=== PATIENT | female | born 1975 | race Caucasian/White ===

== ENCOUNTER 2017-03-17 10:08 | Observation (INO) | payer MEDICAID, MEDICARE, OTHER ==
[~2017-03-17] VITALS: Ht 167.6 cm; Wt 68.0 kg
[2017-03-17] MEDS ORDERED: SODIUM CHLORIDE 0.9% 1,000 ML IV ONE (10:33)
[2017-03-17 10:47] LABS: DAU SCREEN DISCLAIMER
[2017-03-17 10:49] LABS: HCG UR OBC PASS
[2017-03-17 10:57] LABS: HEMATOCRIT 37.9 % (34.6-47.8); WHITE BLOOD COUNT 7.5 x10^3/uL (3.4-10)
[2017-03-17 11:10] LABS: ASPARTATE AMINO TRANSFERASE 12 U/L (15-37); BLOOD UREA NITROGEN 14 mg/dL (7-18)
[2017-03-17 11:16] LABS: ACETAMINOPHEN < 2 mcg/mL (10-30)
[2017-03-17] MEDS ORDERED: ZOLP-413 PO (11:38)
[2017-03-17] MEDS ORDERED: LURA20TA PO (11:38)
[2017-03-17] MEDS ORDERED: LEVO50TA5 PO (11:38)
[2017-03-17] MEDS ORDERED: LAMO5TB.2 PO (11:38)
[2017-03-17] MEDS ORDERED: CLON1TAB PO (11:38)
[2017-03-17] MEDS ORDERED: KETOROLAC 30 MG/1 ML IVPush ONE (12:00)
[2017-03-17] MEDS ORDERED: KETOROLAC 30 MG/1 ML ONE (12:09)
[2017-03-17] MEDS ORDERED: BACITRACIN ZINC OINT 500U/GM, 0.9 GM ONE (12:57)
[2017-03-17] MEDS ORDERED: LAMOTRIGINE 5 MG PO SCH (13:00)
[2017-03-17] MEDS ORDERED: ACETAMINOPHEN 325 MG TABLET PO PRN (13:00)
[2017-03-17] MEDS ORDERED: ONDANSETRON ODT 4 MG PO PRN (13:00)
[2017-03-17] MEDS ORDERED: LORazepam 2 MG/ML, 1ML IM PRN (13:00)
[2017-03-17] MEDS ORDERED: HALOPERIDOL 5 MG/ML IM PRN (13:00)
[2017-03-17] MEDS ORDERED: HYDROcodone/APAP 5/325 TABLET ONE (14:48)
[2017-03-17] MEDS: HYDROcodone/APAP 5/325 TABLET PO PRN (14:49)
[2017-03-17] MEDS ORDERED: HALOPERIDOL 5 MG TABLET PO PRN (18:00)
[2017-03-17] MEDS ORDERED: LORazepam 1MG TABLET ONE (22:08)
[2017-03-17] MEDS: LORazepam 1MG TABLET PO PRN (22:13)
[2017-03-17] MEDS ORDERED: VENLAFAXINE XR 37.5MG CAP.ER.24H PO SCH (22:30)
[2017-03-17] MEDS: PRAZOSIN 5 MG CAPSULE PO SCH (22:59)
[2017-03-17] MEDS: LEVOTHYROXINE 50 MCG TABLET PO SCH (22:59)
[2017-03-17] MEDS: LAMOTRIGINE 25 MG TABLET PO SCH (23:00)
[2017-03-17] MEDS: LURASIDONE 20 MG TABLET PO SCH (23:00)
[2017-03-18 06:56] LABS: ASPARTATE AMINO TRANSFERASE 10 U/L (15-37); BLOOD UREA NITROGEN 18 mg/dL (7-18)
[2017-03-18] MEDS ORDERED: LORazepam 1MG TABLET ONE (08:35)
[2017-03-18] MEDS: LORazepam 1MG TABLET PO PRN ×2 (08:37→16:28)
[2017-03-18] MEDS ORDERED: LAMOTRIGINE 25 MG TABLET PO SCH (09:00)
[2017-03-18] MEDS: LEVOTHYROXINE 50 MCG TABLET PO SCH (09:19)
[2017-03-18] MEDS: LAMOTRIGINE 25 MG TABLET PO SCH ×2 (09:20→20:58)
[2017-03-18] MEDS ORDERED: NICOTINE 21 MG/24 HR PATCH.TD24 ONE (09:24)
[2017-03-18] MEDS: NICOTINE 21 MG/24 HR PATCH.TD24 TD SCH ×2 (09:25→13:14)
[2017-03-18] MEDS ORDERED: HYDROcodone/APAP 5/325 TABLET ONE (12:58)
[2017-03-18] MEDS: HYDROcodone/APAP 5/325 TABLET PO PRN (13:13)
[2017-03-18 15:46] VITALS: BP 118/77
[2017-03-18 19:46] VITALS: BP 92/53
[2017-03-18] MEDS ORDERED: VENLAFAXINE 75 MG CAP ER PO SCH (21:00)
[2017-03-18] MEDS: PRAZOSIN 5 MG CAPSULE PO SCH (21:00)
[2017-03-18] MEDS: LURASIDONE 20 MG TABLET PO SCH (21:01)
[2017-03-19] MEDS: LEVOTHYROXINE 50 MCG TABLET PO SCH (07:00)
[2017-03-19 07:35] VITALS: BP_SYST 112; BP_SYST 90; BP_DIAS 48; BP_DIAS 56
[2017-03-19] MEDS ORDERED: LEVOTHYROXINE 25 MCG TABLET ONE (08:12)
[2017-03-19] MEDS: LAMOTRIGINE 25 MG TABLET PO SCH (09:00)
[2017-03-19] MEDS: HYDROcodone/APAP 5/325 TABLET PO PRN (09:27)
[2017-03-19] MEDS: NICOTINE 21 MG/24 HR PATCH.TD24 TD SCH (13:31)
== END 2017-03-19 15:15 ==
LOC: ED 12:12 → EDIP 12:13 → SUATTDRO 12:21 → ED 12:25 → 3E 03-18 15:41
PROVIDERS: ADMIT Internal Medicine; ATTEND Internal Medicine
DX: T42.4X2A Poisoning by benzodiazepines, intentional self-harm, initial encounter (principal); E03.9 Hypothyroidism, unspecified; F31.9 Bipolar disorder, unspecified; Z72.0 Tobacco use; M41.9 Scoliosis, unspecified; G89.29 Other chronic pain; Y92.89 Other specified places as the place of occurrence of the external cause; S71.112A Laceration without foreign body, left thigh, initial encounter; X83.8XXA Intentional self-harm by other specified means, initial encounter; Y93.89 Activity, other specified; Y99.8 Other external cause status
CPT/HCPCS: 36415; 80053; 80307; 80329; 81003; 81025; 84443; 85025; 96374; 99285; G0378; J1885; G0479; G0480

== ENCOUNTER 2018-03-27 15:52 | Observation (INO) | payer MEDICARE, MEDICAID ==
[~2018-03-27] VITALS: Ht 167.6 cm; Wt 76.2 kg
[~2018-03-27 15:52] MED LIST: CLON1TAB PO; LAMO5TB.2 PO; LEVO50TA5 PO; LURA20TA PO; ZOLP-413 PO
[2018-03-27 16:40] LABS: BASOPHILS # (AUTO) 0.02 x10^3/uL (0-0.1); BASOPHILS % (AUTO) 0 % (0-1); EOSINOPHILS # (AUTO) 0.13 x10^3/uL (0-0.4); EOSINOPHILS % (AUTO) 2 % (1-7); LYMPHOCYTES # (AUTO) 1.59 x10^3/uL (1-3.4); LYMPHOCYTES % (AUTO) 21 % (22-44); MD NO; MEAN CORPUSCULAR HEMOGLOBIN 31.2 pg (27.0-34.8); MEAN CORPUSCULAR HGB CONC 33.7 g/dL (32.4-35.8); MEAN CORPUSCULAR VOLUME 92.6 fL (80-100); MEAN PLATELET VOLUME 7.3 fL (7.4-10.4); MONOCYTES # (AUTO) 0.28 x10^3/uL (0.2-0.8); MONOCYTES % (AUTO) 4 % (2-9); NEUTROPHILS # (AUTO) 5.45 x10^3/uL (1.8-6.8); NEUTROPHILS % (AUTO) 73 % (42-75); PLATELET COUNT 356 x10^3/uL (130-400); RED BLOOD COUNT 4.01 x10^6/uL (3.82-5.3); RED CELL DISTRIBUTION WIDTH 17.1 % (9.6-15.2)
[2018-03-27 16:51] LABS: ALANINE AMINOTRANSFERASE 18 U/L (12-78); ALBUMIN 3.9 g/dL (3.4-5.0); ANION GAP 9 mmol/L (5-15); CALCIUM 8.7 mg/dL (8.5-10.1); CHLORIDE 110 mmol/L (98-107); CREATININE 0.77 mg/dL (0.55-1.02); SALICYLATE LEVEL 3.7 mg/dL (2.8-20.0)
[2018-03-27 16:56] LABS: ALKALINE PHOSPHATASE 56 U/L (45-117); BILIRUBIN,TOTAL 0.2 mg/dL (0.2-1.0); TOTAL PROTEIN 7.7 g/dL (6.4-8.2)
[2018-03-27 16:59] LABS: ACETAMINOPHEN < 2 mcg/mL (10-30)
[2018-03-27 18:02] LABS: MICROSCOPIC AUTO
[2018-03-27 18:05] LABS: CULTURE INDICATED? YES
[2018-03-27 18:22] LABS: AMPHETAMINE SCREEN, URINE Negative (Negative); BENZODIAZEPINE SCREEN, URINE Positive (Negative); CANNABINOID SCREEN, URINE Negative (Negative); COCAINE SCREEN, URINE Negative (Negative); METHADONE SCREEN, URINE Negative (Negative); OPIATE SCREEN, URINE Negative (Negative)
[2018-03-27 18:23] LABS: BARBITURATE SCREEN, URINE Negative (Negative)
[2018-03-27] MEDS ORDERED: ONDANSETRON ODT 4 MG PO PRN (20:00)
[2018-03-27] MEDS ORDERED: NICOTINE 14MG/24 HR PATCH.TD24 TD SCH (20:00)
[2018-03-27] MEDS ORDERED: POLYETHYLENE GLYCOL 17 GM PACKET PO PRN (20:00)
[2018-03-27] MEDS ORDERED: IBUPROFEN 600 MG TABLET PO PRN (20:00)
[2018-03-27] MEDS ORDERED: ACETAMINOPHEN 325 MG TABLET PO PRN (20:00)
[2018-03-27 20:19] VITALS: BP 104/66
[2018-03-28] MEDS ORDERED: LEVOTHYROXINE 50 MCG TABLET PO SCH (06:00)
== END 2018-03-27 23:00 ==
LOC: ED 19:34 → SUATTDRO 19:39 → EDIP 19:50 → 2N 20:16
PROVIDERS: ADMIT Hospitalist; ATTEND Hospitalist
DX: T42.4X2A Poisoning by benzodiazepines, intentional self-harm, initial encounter (principal); F31.9 Bipolar disorder, unspecified; E03.9 Hypothyroidism, unspecified; F41.1 Generalized anxiety disorder; F17.210 Nicotine dependence, cigarettes, uncomplicated; Z91.5 Personal history of self-harm
CPT/HCPCS: 36415; 80053; 80307; 80329; 81001; 84703; 85025; 87086; 99285; G0378; G0480

== ENCOUNTER 2019-01-30 19:21 | Emergency (ER) | payer MEDICARE, MEDICAID ==
[~2019-01-30] VITALS: Ht 165.1 cm; Wt 77.0 kg
--- NOTE | 2019-01-30 19:25 | NUR ---
PT STATES SHE HAS BEEN TAKING HER MEDICATIONS PRESCRIBED BUT IS UNSURE WHAT THEY ARE. STATES SHE IS TAKING CELEXA OF UNKNOWN DOSE. DENIES DRUGS OR ALCOHOL TODYA.
--- NOTE | 2019-01-30 19:40 | NUR ---
BELONGINGS REMOVED FROM PT ROOM AND SECURED IN THE ED.
--- NOTE | 2019-01-30 19:41 | NUR ---
PT FAMILY FRIEND CALLS AND STATES THAT PT HAS BEEN STAYING WITH THEM RECENTLY AND IS "NOTORIOUS FOR TAKING TOO MANY MEDICAIONS." STATES THAT HE WANTED HER TO GO TO [place] OR "GET STRAIGHTENED OUT THERE." [place] [phone]
--- NOTE | 2019-01-30 20:00 | NUR ---
PT SLEEPING QUIETLY, AWAKENED AT THIS TIME, REMAINS SOMNOLENT BUT APPROPRIATE. PT CURRENTLY DENIES SI/HI AT THIS TIME, STATES THAT SHE DOES SOMETIMES FEEL SUICIDAL AND BUT TWICE DENIES FEELING SUICIDAL AT THIS TIME, DENIES THAT SHE TOOK MORE OF HER MEDICATIONS THAT RX'D HOWEVER IS ONLY ABLE TO RECALL CLONAZEPAM AND DOES NOT RECALL THE DOSAGE. PT IS NSR MONITOR WITHOUT ECTOPY, IS TO CT AT THIS TIME CURRENTLY STABLE.
--- NOTE | 2019-01-30 20:03 | NUR ---
PT STATES THAT SHE IS SLEEPY BECAUSE SHE FELL AND HIT HER HEAD, UNABLE TO DESCRIBE EVENT OR TIME. PT NOTES HISTORY OF SA IN THE PAST BY CUTTING HER R WRIST HORIZONTALLY WELL HEALED
[2019-01-30 20:27] LABS: BASOPHILS % (AUTO) 0 % (0-1); EOSINOPHILS # (AUTO) 0.07 x10^3/uL (0-0.4); EOSINOPHILS % (AUTO) 1 % (1-7); LYMPHOCYTES % (AUTO) 13 % (22-44); MD NO; MEAN CORPUSCULAR HEMOGLOBIN 35.5 pg (27.0-34.8); MEAN CORPUSCULAR HGB CONC 33.8 g/dL (32.4-35.8); MEAN PLATELET VOLUME 7.3 fL (7.4-10.4); MONOCYTES # (AUTO) 0.65 x10^3/uL (0.2-0.8); MONOCYTES % (AUTO) 7 % (2-9); NEUTROPHILS # (AUTO) 7.22 x10^3/uL (1.8-6.8); NEUTROPHILS % (AUTO) 79 % (42-75); PLATELET COUNT 319 x10^3/uL (130-400); RED BLOOD COUNT 3.65 x10^6/uL (3.82-5.3); RED CELL DISTRIBUTION WIDTH 13.6 % (9.6-15.2)
[2019-01-30 20:39] LABS: ALANINE AMINOTRANSFERASE 20 U/L (12-78); ALBUMIN 3.6 g/dL (3.4-5.0); ANION GAP 9 mmol/L (5-15); CALCIUM 8.3 mg/dL (8.5-10.1); CHLORIDE 112 mmol/L (98-107); CREATININE 0.99 mg/dL (0.55-1.02); SALICYLATE LEVEL 3.2 mg/dL (2.8-20.0)
[2019-01-30 20:41] LABS: ALKALINE PHOSPHATASE 42 U/L (45-117); BILIRUBIN,TOTAL 0.3 mg/dL (0.2-1.0); TOTAL PROTEIN 6.4 g/dL (6.4-8.2)
--- NOTE | 2019-01-30 20:54 | NUR ---
THROUGHPUT RN: TELEPSYCH CONSULTED.
--- NOTE | 2019-01-30 21:55 | NUR ---
PT RESTING IN BED W/O DISTRESS. VSS.
--- NOTE | 2019-01-30 22:25 | NUR ---
Note tiffanie in [facility] - 01/30/19 at 2225 by CHIDI PT VOMITED APPROX 150CC OF BROWN VOMIT, SUCTIONIED MOUTH TO CLEAR. HOSPITALIST AT BEDSIDE AND AWARE OF VOMITING
--- NOTE | 2019-01-30 22:50 | NUR ---
ASSISTED PT TO THE RESTROOM FOR SAMPLE COLLECTION. OFFERED FOOD AND DRINK BUT PT REFUSES AT THIS TIME.
--- NOTE | 2019-01-30 22:55 | NUR ---
GAVE REPORT TO TELEPSYCH
[2019-01-30 23:18] LABS: AMPHETAMINE SCREEN, URINE Negative (Negative); BARBITURATE SCREEN, URINE Negative (Negative); BENZODIAZEPINE SCREEN, URINE Positive (Negative); CANNABINOID SCREEN, URINE Negative (Negative); COCAINE SCREEN, URINE Negative (Negative); METHADONE SCREEN, URINE Negative (Negative); OPIATE SCREEN, URINE Negative (Negative)
[2019-01-30 23:50] LABS: FREE T4 (FREE THYROXINE) 0.77 ng/dL (0.76-1.46)
--- NOTE | 2019-01-30 23:53 | NUR ---
PT GIVEN OJ AND CRACKERS AND ENCOURAGED TO EAT/DRINK.
--- NOTE | 2019-01-31 00:20 | NUR ---
GAVE REPORT TO KALLI MANCINI AND AWAITING TRANSPORT.
== END 2019-01-31 00:45 ==
LOC: ED 20:35
DX: R41.82 Altered mental status, unspecified (principal); R45.851 Suicidal ideations; R25.9 Unspecified abnormal involuntary movements; Z72.9 Problem related to lifestyle, unspecified; F41.1 Generalized anxiety disorder; E03.9 Hypothyroidism, unspecified
CPT/HCPCS: 36415; 70450; 80053; 80307; 84439; 84443; 85025; 99284

== ENCOUNTER 2019-01-31 00:34 | Inpatient (IN) | payer MEDICARE, MEDICAID ==
[~2019-01-31] VITALS: Ht 167.6 cm; Wt 77.2 kg
[2019-02-05 07:32] VITALS: BP 105/71
== END 2019-02-05 10:20 | disposition home or self-care (01) | DRG 885 ==
LOC: 3E 01:05
PROVIDERS: ADMIT Counselor Mental Health; ATTEND Counselor Mental Health
DX: F31.30 Bipolar disorder, current episode depressed, mild or moderate severity, unspecified (principal); R45.851 Suicidal ideations; E03.9 Hypothyroidism, unspecified; F41.9 Anxiety disorder, unspecified; F17.210 Nicotine dependence, cigarettes, uncomplicated; G47.00 Insomnia, unspecified; Z81.8 Family history of other mental and behavioral disorders; Z79.899 Other long term (current) drug therapy; Z83.3 Family history of diabetes mellitus; Z82.5 Family history of asthma and other chronic lower respiratory diseases; Z71.6 Tobacco abuse counseling
CPT/HCPCS: 36415; 70450; 71045; 80053; 80061; 80307; 81001; 82140; 82607; 84439; 84443; 85025; 85651; 86592; 87086; 93005; 99284

== ENCOUNTER → 2020-02-08 | Outpatient (CLI) | payer MEDICARE, MEDICAID ==
[~2020-02-08] MED LIST changes: +LAMO150T3 PO; +TEMA30CA PO; +prazosin PO; +propranolol PO; +vraylar PO
[2020-02-08 13:40] LABS: BASOPHILS # (AUTO) 0.03 x10^3/uL (0-0.1); BASOPHILS % (AUTO) 0 % (0-1); EOSINOPHILS # (AUTO) 0.22 x10^3/uL (0-0.4); EOSINOPHILS % (AUTO) 2 % (1-7); LYMPHOCYTES # (AUTO) 1.34 x10^3/uL (1-3.4); LYMPHOCYTES % (AUTO) 15 % (22-44); MD NO; MEAN CORPUSCULAR HEMOGLOBIN 34.2 pg (27.0-34.8); MEAN CORPUSCULAR HGB CONC 33.8 g/dL (32.4-35.8); MEAN CORPUSCULAR VOLUME 101.4 fL (80-100); MEAN PLATELET VOLUME 7.2 fL (7.4-10.4); MONOCYTES # (AUTO) 0.41 x10^3/uL (0.2-0.8); MONOCYTES % (AUTO) 5 % (2-9); NEUTROPHILS # (AUTO) 6.95 x10^3/uL (1.8-6.8); NEUTROPHILS % (AUTO) 78 % (42-75); PLATELET COUNT 394 x10^3/uL (130-400); RED BLOOD COUNT 3.91 x10^6/uL (3.82-5.3); RED CELL DISTRIBUTION WIDTH 14.2 % (9.6-15.2)
== END | disposition home or self-care (01) ==
LOC: LAB 13:19
PROVIDERS: ATTEND Obstetrics & Gynecology
DX: R19.00 Intra-abdominal and pelvic swelling, mass and lump, unspecified site (principal); N83.201 Unspecified ovarian cyst, right side; N83.202 Unspecified ovarian cyst, left side
CPT/HCPCS: 36415; 85025

== ENCOUNTER 2020-02-10 14:05 | Outpatient (CLI) | payer MEDICARE, MEDICAID ==
[~2020-02-10 14:05] MED LIST changes: -LAMO150T3 PO; -TEMA30CA PO; -prazosin PO; -propranolol PO; -vraylar PO
[2020-02-10] MEDS ORDERED: prazosin PO (14:47)
[2020-02-10] MEDS ORDERED: TEMA30CA PO (14:47)
[2020-02-10] MEDS ORDERED: LAMO150T3 PO (14:47)
[2020-02-10] MEDS ORDERED: vraylar PO (14:47)
[2020-02-10] MEDS ORDERED: propranolol PO (14:47)
[2020-02-10 15:08] LABS: BASOPHILS # (AUTO) 0.02 x10^3/uL (0-0.1); BASOPHILS % (AUTO) 0 % (0-1); EOSINOPHILS # (AUTO) 0.17 x10^3/uL (0-0.4); EOSINOPHILS % (AUTO) 3 % (1-7); LYMPHOCYTES # (AUTO) 1.17 x10^3/uL (1-3.4); LYMPHOCYTES % (AUTO) 19 % (22-44); MD NO; MEAN CORPUSCULAR HEMOGLOBIN 34.7 pg (27.0-34.8); MEAN CORPUSCULAR HGB CONC 33.9 g/dL (32.4-35.8); MEAN CORPUSCULAR VOLUME 102.4 fL (80-100); MEAN PLATELET VOLUME 7.1 fL (7.4-10.4); MONOCYTES % (AUTO) 7 % (2-9); NEUTROPHILS # (AUTO) 4.35 x10^3/uL (1.8-6.8); NEUTROPHILS % (AUTO) 71 % (42-75); PLATELET COUNT 383 x10^3/uL (130-400); RED BLOOD COUNT 3.59 x10^6/uL (3.82-5.3); RED CELL DISTRIBUTION WIDTH 14.1 % (9.6-15.2)
[2020-02-10 15:13] LABS: ALANINE AMINOTRANSFERASE 25 U/L (12-78); ALBUMIN 3.6 g/dL (3.4-5.0); ANION GAP 5 mmol/L (5-15); CALCIUM 8.4 mg/dL (8.5-10.1); CHLORIDE 108 mmol/L (98-107)
[2020-02-10 15:16] LABS: INTERNATIONAL NORMALIZED RATIO 0.95 (0.93-1.1); PROTHROMBIN TIME 9.8 Seconds (9.6-11.5)
[2020-02-10 15:18] LABS: ALKALINE PHOSPHATASE 80 U/L (45-117); BILIRUBIN,TOTAL 0.3 mg/dL (0.2-1.0); CREATININE 0.74 mg/dL (0.55-1.02); TOTAL PROTEIN 7.5 g/dL (6.4-8.2)
== END 2020-02-10 23:59 | disposition home or self-care (01) ==
LOC: STAR 14:05
PROVIDERS: ATTEND Obstetrics & Gynecology
DX: Z01.818 Encounter for other preprocedural examination (principal); Z11.59 Encounter for screening for other viral diseases; R19.00 Intra-abdominal and pelvic swelling, mass and lump, unspecified site
CPT/HCPCS: 36415; 71046; 80053; 82378; 84703; 85025; 85610; 85730; 86304; 87635; 93005

== ENCOUNTER 2020-02-14 05:16 | Day surgery (SDC) | payer MEDICARE, MEDICAID ==
[~2020-02-14] VITALS: Ht 167.6 cm; Wt 90.0 kg
[~2020-02-14 05:16] MED LIST changes: +LAMO150T3 PO; +TEMA30CA PO; +prazosin PO; +propranolol PO; +vraylar PO
[2020-02-14] MEDS ORDERED: CHLORHEXIDINE 15 ML UDC MM STA (06:05)
[2020-02-14] MEDS ORDERED: LACTATED RINGERS 1,000 ML IV SCH (06:05)
[2020-02-14 06:07] VITALS: BP 91/55
[2020-02-14] MEDS ORDERED: CEFOTETAN PMX 2GM/50ML 50 ML IV STA (06:12)
[2020-02-14] MEDS ORDERED: LEVO50TA5 PO (06:43)
[2020-02-14] MEDS ORDERED: CLON2TAB9 PO (06:43)
[2020-02-14] MEDS ORDERED: PROP80TA PO (06:43)
[2020-02-14] MEDS ORDERED: PRAZ5CAP2 PO (06:43)
[2020-02-14 07:02] LABS: HCG UR SG 1.014 (1.003-1.030)
[2020-02-14] MEDS ORDERED: FENTANYL PF 250 MCG/5ML ONE (07:14)
[2020-02-14] MEDS ORDERED: MIDAZOLAM 1 MG/ML, 2ML ONE (07:14)
[2020-02-14] MEDS ORDERED: INDOCYANINE GREEN 25 MG VIAL ONE (07:20)
[2020-02-14] MEDS ORDERED: BUPIVACAINE/PF-EPI 0.25% 1:200K ONE (07:20)
[2020-02-14] MEDS ORDERED: PROMETHAZINE 25 MG/ML, 1ML IVPush PRN (07:30)
[2020-02-14] MEDS ORDERED: LABETALOL 5MG/ML, 20ML IV PRN (07:30)
[2020-02-14] MEDS ORDERED: HALOPERIDOL 5 MG/ML IV PRN (07:30)
[2020-02-14] MEDS ORDERED: HYDROcodone/APAP 7.5-325MG/15ML UDC PO PRN (07:30)
[2020-02-14] MEDS ORDERED: hydrALAzine 20 MG/ML, 1ML IV PRN (07:30)
[2020-02-14] MEDS ORDERED: DIPHENHYDRAMINE 50 MG/ML, 1ML IVPush PRN (07:30)
[2020-02-14] MEDS ORDERED: HYDROmorphone 1 MG/ML, 1ML INJ IVPush PRN (07:30)
[2020-02-14] MEDS ORDERED: MEPERIDINE/PF 25MG/0.5ML IVPush PRN (07:30)
[2020-02-14] MEDS ORDERED: FENTANYL PF 100 MCG/2ML ONE ×2 (10:14→11:40)
[2020-02-14] MEDS ORDERED: PROPOFOL 10 MG/ML, 20ML ONE (10:19)
[2020-02-14] MEDS ORDERED: ONDANSETRON 2MG/ML, 2ML ONE (10:19)
[2020-02-14] MEDS ORDERED: ROCURONIUM 10MG/ML,5ML ONE (10:19)
[2020-02-14] MEDS ORDERED: CEFAZOLIN 1,000 MG ONE (10:19)
[2020-02-14] MEDS ORDERED: SUCCINYLCHOLINE 20 MG/ML, 10ML ONE (10:19)
[2020-02-14] MEDS ORDERED: GLYCOPYRROLATE 0.2MG/1ML, 5ML ONE (10:19)
[2020-02-14] MEDS ORDERED: DEXAMETHASONE 4 MG/ML, 1ML ONE (10:19)
[2020-02-14] MEDS ORDERED: NEOSTIGMINE 1 MG/ML, 10ML ONE (10:19)
[2020-02-14] MEDS: FENTANYL PF 100 MCG/2ML IV PRN ×3 (11:36→12:04)
[2020-02-14] MEDS ORDERED: HYDROcodone/APAP 7.5-325MG/15ML UDC ONE (11:40)
== END 2020-02-14 14:50 | disposition home or self-care (01) ==
LOC: OUT 05:16
PROVIDERS: ATTEND Obstetrics & Gynecology
DX: R19.09 Other intra-abdominal and pelvic swelling, mass and lump (principal); N92.0 Excessive and frequent menstruation with regular cycle; N73.6 Female pelvic peritoneal adhesions (postinfective); N87.9 Dysplasia of cervix uteri, unspecified; N83.8 Other noninflammatory disorders of ovary, fallopian tube and broad ligament; K68.9 Other disorders of retroperitoneum; E03.9 Hypothyroidism, unspecified; F31.9 Bipolar disorder, unspecified; E55.9 Vitamin D deficiency, unspecified; F17.200 Nicotine dependence, unspecified, uncomplicated; Z79.890 Hormone replacement therapy; Z79.899 Other long term (current) drug therapy
CPT/HCPCS: 36415; 58552; 58662; 81025; 86850; 86900; 88305; 88307; 88341; 88342; 88360; J0330; J1100; J2250; J2405; J2704; J2710; J3010; J3490; J7120; J0690